=== PATIENT | male | born 1995 | race Caucasian/White ===

== ENCOUNTER → 2020-06-11 08:38 | Outpatient (CLI) | payer OTHER, SELFPAY ==
--- NOTE | ~2020-06-11 | CT_ITS ---
EXAMINATION: CT sinus wo con DATE: 06/11/2020 08:56 INDICATION: Chronic sinusitis. Deviated nasal septum. TECHNIQUE: Computed tomography (CT) of the paranasal sinuses was performed without intravenous contra st. The dose-length product was 285.32 mGy-cm. Automated exposure control and iterative reconstructio n technique were employed. COMPARISON: None FINDINGS: There is a 1.9 cm mucous retention cyst of the right maxillary antrum. Minimal mucosal thic kening of the left maxillary sinus. Rightward nasal septal deviation. Ostiomeatal units are patent. M astoids are pneumatized. IMPRESSION: 1. Mild sinus disease with right maxillary mucous retention cyst. Reviewed, dictated and finalized at location A.
== END ==
PROVIDERS: PCP Family Medicine; Visit Provider Physician Assistant Medical
DX: J34.1 Cyst and mucocele of nose and nasal sinus (principal); J34.2 Deviated nasal septum
CPT/HCPCS: 70486

== ENCOUNTER → 2020-07-06 01:10 | Outpatient (CLI) | payer OTHER, SELFPAY ==
[2020-07-06 19:43] LABS: SARS-CoV-2 RNA PCR Negative
== END ==
PROVIDERS: PCP Family Medicine; Visit Provider Otolaryngology
DX: Z01.812 Encounter for preprocedural laboratory examination (principal); Z20.822 Contact with and (suspected) exposure to COVID-19
CPT/HCPCS: C9803; U0003; U0005

== ENCOUNTER 2020-07-09 01:07 | Day surgery (SDC) | payer OTHER, SELFPAY ==
[2020-07-04 10:06] VITALS: BMI 33.9
--- NOTE | 2020-07-08 06:17 | PM.HPGS ---
History of Present Illness History of Present Illness Consent: Risks, benefits, and alternatives have been discussed and questions answered. Patient agrees to proceed with procedure. Chief complaint: nasal septal divation Narrative: Bhavin Sabillon is a 25 year old male has a deviated septum with obstruction and bilateral inferior turbinate hypertrophy Review of Systems Review of Systems: All systems reviewed & are unremarkable except as noted in HPI and below PMFSH Past Medical History Medical History Adult BMI 34.0-34.9 kg/sq m BMI 35.0-35.9,adult Well adult exam Surgical History Surgical History History of tonsillectomy Family History Family History Other Cerebrovascular accident Diabetes mellitus Family history of coronary artery disease Social History Social History Years smoked: 2 Smoking status: Former smoker Second hand tobacco smoke exposure: Yes Smoking end date: 03/22/14 Alcohol intake: current Drinks per week: 3 Substance use: never Substance use type: does not use Spiritual care concerns: No Comments as septal deviation with obstruction and inferior turbinate hypertrophy Meds Home Medications and Allergies Home Medications Medication Instructions Recorded Confirmed Type cephalexin 500 mg capsule 500 mg PO Q12H #20 cap 06/27/20 07/04/20 Rx fluticasone propionate 50 1 spray INTRANASAL DAILY 06/27/20 07/04/20 History mcg/actuation nasal spray,suspension dextroamphetamine-amphetamine ER 10 mg PO DAILY #30 cap 06/28/20 07/04/20 Rx 10 mg 24hr capsule,extend release Allergies Allergy/AdvReac Type Severity Reaction Status Date / Time amoxicillin Allergy Mild Hives Verified 07/04/20 10:05 erythromycin base Allergy Mild hives Verified 07/04/20 10:05 Penicillins Allergy Mild hives Verified 07/04/20 10:05 Assessment and Plan Additional Plan plan is a septoplasty and bilateral inferior tu
[2020-07-09] VITALS (8 sets, daily range): BP systolic 101–144; BP diastolic 51–82; PULSE 66–76; RESP 10–16; TEMP 35.9–36.8; O2SAT 97–99
--- NOTE | 2020-07-09 05:52 | WPDHPUPDATE1 ---
History and Physical Update Update Date/Time: 07/09/20 05:52 History and Physical has been reviewed, including an updated exam of the patient. There are NO changes in the patient's condition. Risks, benefits, and alternatives have been discussed and questions answered. Patient agrees to proceed with procedure.
--- NOTE | 2020-07-09 06:46 | WPDANESEPPF ---
Anes - Initial Pre Proc Eval Procedure: Operation Date: 07/09/20 07:45 Proposed Procedures p Septoplasty, - Huey Rome MD s Bilateral Inferior Turbinectomy - Huey Rome MD Date/Time: 07/09/20 06:46 Surgeon: Huey Rome MD Pre Op Diagnosis: nasal septal divation Patient Data Age: 25 Gender: M Height: 6 ft Weight: 113.4 kg Allergies Allergy/AdvReac Type Severity Reaction Status Date / Time amoxicillin Allergy Mild Hives Verified 07/04/20 10:05 erythromycin base Allergy Mild hives Verified 07/04/20 10:05 Penicillins Allergy Mild hives Verified 07/09/20 06:22 Home Medications Medication Instructions Recorded Confirmed Type cephalexin 500 mg capsule 500 mg PO Q12H #20 cap 06/27/20 07/04/20 Rx fluticasone propionate 50 1 spray INTRANASAL DAILY 06/27/20 07/09/20 History mcg/actuation nasal spray,suspension dextroamphetamine-amphetamine ER 10 mg PO DAILY #30 cap 06/28/20 07/04/20 Rx 10 mg 24hr capsule,extend release Patient hx anesthesia problems: none Family hx anesthesia problems: none PMFSH Past Medical History Medical History Adult BMI 34.0-34.9 kg/sq m BMI 35.0-35.9,adult Well adult exam Surgical History Surgical History History of tonsillectomy Family History Family History Other Cerebrovascular accident Diabetes mellitus Family history of coronary artery disease Social History Social History Years smoked: 2 Smoking status: Former smoker Second hand tobacco smoke exposure: Yes Smoking end date: 03/22/14 Alcohol intake: current Drinks per week: 3 Substance use: never Substance use type: does not use Living arrangements: with roommate(s) Spiritual care concerns: No Anes - Eval Final PreProcedure Day of Procedure 07/09/20 06:46 Patient weight: obese Heart: regular rate and rhythm Lungs: clear to auscultation Airway: Mallampati scale class II Neurological: alert and oriented Last oral intake: >/= 8 hours ASA classification: II Emergent: no Anesthetic plan: proceed Anesthesia type and monitoring: general ETT and standard monitoring Informed Consent: The patient's anesthetic plan and its attendant risks and benefits were discussed with the patient/family/POA. Questions were solicited and answers provided to the satisfaction of the patient/family/POA.
[2020-07-09] MEDS: ACETAMINOPHEN 500 MG TABLET 1000 MG PO (07:23)
[2020-07-09] MEDS: LACTATED RINGERS 1,000 ML 30 ML IV CONT (07:40)
[2020-07-09] MEDS: LIDO 1%/EPINEPHRINE 1:100,000 50 ML VIAL INFILTRATE (07:44)
--- NOTE | 2020-07-09 08:24 | PM.PROC ---
Procedure Note - Detailed Date of procedure: 07/09/20 Pre-op diagnosis: nasal septal divation Post-op diagnosis: same Procedure performed: Septoplasty and inferior turbinectomy Description of procedure: Patient was prepped and draped in usual fashion after general anesthesia. The nose was injected with xylocaine with Adrenalin and packed with Neosporin Himanshu-Synephrine on cottonoids. A [] rocco transfixation was made anterior and posterior tunnel was elevated. The bony cartilage junction . The bony deviation was removed in its entirety. Swung the cardilege and bone to the mid both inferior turbinates were then reduced in size with suction cautery line nose open on both sides. The nose was then packed with Surgicel patient awakened returned to recovery good condition. Anesthesia: GLMA and GETA Surgeon: Huey Rome MD Estimated blood loss (mL): 10 Drains: No Packing: Yes Complications: No immediate complications Condition: stable Disposition: PACU Findings: Deviated septum
== END 2020-07-09 10:09 | disposition home or self-care (01) ==
PROVIDERS: PCP Family Medicine; Visit Provider Otolaryngology
PROC: (CPT 30520; principal; 2020-07-09 07:45)
PROC: (CPT 30520; 2020-07-09 07:45)
DX: J34.2 Deviated nasal septum (principal); J34.3 Hypertrophy of nasal turbinates; Z87.891 Personal history of nicotine dependence
CPT/HCPCS: 30520; 30140; A9270; C9803; J0330; J1100; J2250; J2405; J2704; J3010; J7120; U0003; U0005

== ENCOUNTER → 2021-01-29 11:06 | Outpatient (CLI) | payer OTHER, SELFPAY ==
--- NOTE | ~2021-01-29 | XR_ITS ---
XR knee LT 3V 01/29/2021 11:41 INDICATION: Left knee pain PROCEDURE: 3 views left knee COMPARISON: No prior studies for comparison. FINDINGS: Fracture, dislocation or subluxation is not identified. No significant joint effusion. The soft tissues appear within normal limits. No foreign bodies are identified. IMPRESSION: 1: NO ACUTE BONE OR JOINT ABNORMALITY IDENTIFIED. Reviewed, dictated and finalized at location A. T PRESERVER
--- NOTE | ~2021-01-29 | XR_ITS ---
XR knee RT 3V 01/29/2021 11:41 Indication: Right knee pain Procedure: 3 views right knee Comparison: No prior studies for comparison. Findings: No fracture, subluxation or dislocation. No significant joint space narrowing. No joint eff usion. No focal soft tissue abnormality. Impression: 1: No significant bone or joint abnormality. Reviewed, dictated and finalized at location A. MINER BLASTING Impression: 1: No significant bone or joint abnormality.
== END ==
PROVIDERS: PCP Physician Assistant Medical; Visit Provider Physician Assistant Medical
DX: M25.569 Pain in unspecified knee (principal); G89.29 Other chronic pain
CPT/HCPCS: 73562

== ENCOUNTER → 2021-06-09 09:24 | Outpatient (CLI) | payer OTHER, SELFPAY ==
--- NOTE | ~2021-06-09 | US_ITS ---
EXAMINATION: US scrotum doppler DATE: 06/09/2021 09:50 INDICATION: Bilateral testicular pain TECHNIQUE: Testicular sonogram utilizing grayscale and Doppler COMPARISON: None. FINDINGS: The right testis measures 5.6 x 2.6 x 3.5 cm. The left testis measures 5.6 x 2.5 x 3.3 cm. There is normal vascular flow to both testes. The right epididymis is normal with normal vascular josie w. The left epididymis is normal with normal vascular flow. There is a small right hydrocele. IMPRESSION: 1. Small right hydrocele. Reviewed, dictated and finalized at location B. IMPRESSION: 1. Small right hydrocele.
== END ==
PROVIDERS: PCP Family Medicine; Visit Provider Physician Assistant Medical
DX: N50.819 Testicular pain, unspecified (principal); N43.3 Hydrocele, unspecified
CPT/HCPCS: 76870; 93976

== ENCOUNTER → 2021-08-13 12:46 | Outpatient (CLI) | payer OTHER, SELFPAY ==
--- NOTE | ~2021-08-13 | XR_ITS ---
EXAMINATION: XR lumbar spine 2-3V DATE: 08/13/2021 13:09 INDICATION: Low back pain TECHNIQUE: Anteroposterior and lateral views of the lumbar spine, and cone-down lateral view of the l umbosacral junction were obtained. COMPARISON: 02/20/2014 FINDINGS: Alignment is normal. Vertebral body and disc heights are normal. Bilateral sacroiliac and the profile d lumbar facet joints are normal. Normal bowel gas pattern. IMPRESSION: 1. Negative lumbar spine radiographs. Reviewed, dictated and finalized at location B.
== END ==
PROVIDERS: PCP Family Medicine; Visit Provider Nurse Practitioner Family
DX: M54.50 Low back pain, unspecified (principal)
CPT/HCPCS: 72100

== ENCOUNTER → 2022-01-06 09:58 | Outpatient (CLI) | payer OTHER, SELFPAY ==
--- NOTE | ~2022-01-06 | US_ITS ---
EXAMINATION: US abdomen complete DATE: 01/06/2022 10:22 INDICATION: R10.12 - Left upper quadrant pain TECHNIQUE: Multiple grayscale and Doppler ultrasound images of the abdomen were obtained. COMPARISON: None available. FINDINGS: The visualized portions of the pancreas are normal. The liver is normal with increased echo genicity and normal echotexture. No surface nodularity. Normal hepatopetal flow in the main portal ve in. The gallbladder is normal with no abnormal wall thickening, pericholecystic fluid or stones. The common bile duct measures 4 mm. There was no sonographic Barrios sign. The visualized portions of the aorta are normal. IVC not well visualized. The right kidney measures 11.9 x 5.0 x 6.1. The left kidney measures 11.8 x 5.3 x 5.0. The kidneys de monstrate normal parenchymal echogenicity. There is no hydronephrosis. The spleen is normal in appear ance and measures 12.6 cm. IMPRESSION: Echogenic liver, most commonly due to steatosis but also can be seen with hepatitis and fibrosis. Reviewed, dictated and finalized at location K. IMPRESSION: Echogenic liver, most commonly due to steatosis but also can be seen with hepat itis and fibrosis.
== END ==
PROVIDERS: PCP Nurse Practitioner Family; Visit Provider Nurse Practitioner Family
DX: R10.12 Left upper quadrant pain (principal)
CPT/HCPCS: 76700

== ENCOUNTER 2022-01-21 11:23 | Outpatient (CLI) | payer OTHER, SELFPAY ==
[2022-01-21 19:37] LABS: Alanine Aminotransferase 34 U/L (6-50); Albumin Level 4.9 g/dL (3.5-5.1); Alkaline Phosphatase 99 U/L (38-126); Aspartate Amino Transferase 28 U/L (17-59); Bilirubin,Total 0.6 mg/dL (0.2-1.3)
[2022-01-21 19:57] LABS: Hepatitis B Surface Antigen Negative (Negative)
[2022-01-21 20:03] LABS: HAV RESULT Negative (Negative); Hepatitis B Core IgM Result Negative (Negative)
[2022-01-21 20:15] LABS: Hepatitis C Virus Antibody Negative (Negative)
== END 2022-01-21 11:24 | disposition home or self-care (01) ==
LOC: ANHGOSHLAB 11:27
PROVIDERS: PCP Nurse Practitioner Family; Visit Provider Nurse Practitioner Family
DX: R93.2 Abnormal findings on diagnostic imaging of liver and biliary tract (principal); R10.12 Left upper quadrant pain
CPT/HCPCS: 36415; 80074; 80076